=== PATIENT | male | born 1980 | race Caucasian/White ===

== ENCOUNTER 2019-09-24 13:03 | Emergency (ER) | payer OTHER ==
[~2019-09-24] VITALS: Ht 172.7 cm; Wt 118.8 kg
[2019-09-24 13:10] VITALS: Ht 172.7 cm; Wt 118.8 kg
[2019-09-24 18:14] VITALS: BP 132/87
== END 2019-09-24 18:14 | disposition home or self-care (01) ==
LOC: ED 13:03
DX: R05 Cough (principal); T50.995A Adverse effect of other drugs, medicaments and biological substances, initial encounter; J68.0 Bronchitis and pneumonitis due to chemicals, gases, fumes and vapors; Y92.89 Other specified places as the place of occurrence of the external cause
CPT/HCPCS: J1200; J2930; J3490; Q0092